=== PATIENT | male | born 1950 | race Caucasian/White ===

== ENCOUNTER 2019-02-13 11:15 | Emergency (ER) | payer OTHER ==
[~2019-02-13] VITALS: Ht 182.9 cm; Wt 113.8 kg
[2019-02-13 11:16] VITALS: BP 137/79
[2019-02-13] MEDS ORDERED: PLAVIX 75 MG TA75 M1 PO (11:28)
[2019-02-13] MEDS ORDERED: PROTONIX40 M1 PO (11:28)
[2019-02-13] MEDS ORDERED: LISINOPRIL40 MG PO (11:28)
[2019-02-13] MEDS ORDERED: AGGRENOX 25 MG1 EACH PO (11:28)
[2019-02-13] MEDS ORDERED: LIPITOR40 MG PO (11:29)
[2019-02-13] MEDS ORDERED: METFORMIN HCL500 MG PO (11:29)
[2019-02-13] MEDS ORDERED: WELLBUTRIN XL300 MG PO (11:29)
[2019-02-13] MEDS ORDERED: OXYCONTIN10 M1 PO (11:30)
[2019-02-13] MEDS ORDERED: XANAX 0.5 MG0.5 MG PO (11:30)
[2019-02-13] MEDS ORDERED: PROZAC20 MG PO (11:30)
[2019-02-13] MEDS ORDERED: ACCUNEB SO1.25 MG/1 INH (11:31)
[2019-02-13] MEDS ORDERED: ADVAIR HFA 230M12 GM INH (11:31)
[2019-02-13] MEDS ORDERED: VENTOLIN HFA 1818 GM INH (11:31)
[2019-02-13] MEDS ORDERED: HYDROCHLOROTH12.5 M1 PO (11:31)
[2019-02-13] MEDS ORDERED: KEPPRA 500 MG500 M1 PO (11:32)
[2019-02-13] MEDS ORDERED: VIAGRA100 MG PO (11:32)
[2019-02-13 11:33] LABS: ABSOLUTE BASOPHILS 0.1 thou/uL (0.0-0.2); ABSOLUTE EOSINOPHILS 0.3 thou/uL (0.0-0.7); ABSOLUTE LYMPHOCYTES 1.4 thou/uL (0.8-5.3); ABSOLUTE MONOCYTES 0.7 thou/uL (0.0-1.2); ABSOLUTE NEUTROPHILS 5.5 thou/uL (1.6-8.1); BASOPHILS 0.9 %; EOSINOPHILS 4.1 %; HEMATOCRIT 42.9 % (42.0-52.0); HEMOGLOBIN 14.8 gm/dL (14.0-18.0); LYMPHOCYTES 17.1 %; MCH 34.6 pg (26.0-34.0); MCHC 34.5 g/dL (28.0-37.0); MCV 100.5 fL (80.0-100.0); MONOCYTES 8.4 %; MPV 8.1 fl. (7.2-11.1); NUCLEATED RBCS 0 /100WBC; PLATELET COUNT* 247 thou/uL (150-400); POLYS 69.5 %; RBC 4.27 mil/uL (4.50-6.00); RDW-CV 13.5 % (10.5-14.5); WBC 7.9 thou/uL (4.0-11.0)
[2019-02-13] MEDS ORDERED: MELATONIN5 M1 PO (11:33)
[2019-02-13] MEDS ORDERED: B12INJ IM (11:33)
[2019-02-13] MEDS ORDERED: ZANAFLEX4 MG PO (11:33)
[2019-02-13] MEDS ORDERED: ADDERALL 10 MG10 MG PO (11:33)
[2019-02-13 11:44] LABS: PROTIME 9.9 Seconds (9.20-11.50)
[2019-02-13 11:46] LABS: ANION GAP 8 mmol/L (7-16); BUN 15 mg/dL (7-18); CALCIUM 9.1 mg/dL (8.5-10.1); CHLORIDE 102 mmol/L (98-107); CO2 30 mmol/L (21-32); CREATININE 1.1 mg/dL (0.6-1.3); GLUCOSE 145 mg/dL (70-99); POTASSIUM 4.5 mmol/L (3.5-5.1); SODIUM 140 mmol/L (136-145)
[2019-02-13 11:57] LABS: ALBUMIN 3.4 g/dL (3.4-5.0); ALKALINE PHOSPHATASE 109 U/L (46-116); LIPASE 136 U/L (73-393); NT-PRO BRAIN NAT PEPTIDE 45 pg/mL (<300); SGOT 16 U/L (15-37); SGPT 22 U/L (30-65); TOTAL BILIRUBIN 0.5 mg/dL (<0.1-1.0); TOTAL PROTEIN 6.7 g/dL (6.4-8.2); TROPONIN-I LEVEL <0.06 ng/mL (<0.06)
--- NOTE | 2019-02-13 13:01 | NUR ---
PT WENT FROM CAT SCAN STRAIGHT TO MRI
--- NOTE | 2019-02-13 13:23 | NUR ---
CODE STROKE ACTIVATED AT [address] SEPULVEDA. SEE CODE STROKE SHEET FOR DOCUMENTATION.
--- NOTE | 2019-02-13 15:31 | NUR ---
PT STATES HE IS FEELING MUCH BETTER AND WANTS TO LEAVE AGAINST MEDICAL ADVICE. PT HAS BEEN EXPLAINED HIS RISKS OF LEAVING AGAINST MEDICAL ADVICE AND HAS SIGNED THE REFUSAL OF MEDICAL EXAMINATION AND/OR TREATMENT FORM. IV HAS BEEN REMOVED AND PT HAS CALLED FOR A RIDE HOME. PT IS STABLE AT THIS TIME.
[2019-02-13 15:32] VITALS: BP 158/90
--- NOTE | 2019-02-13 16:55 | EKG ---
[place] [address] ELECTROCARDIOGRAM REPORT Name: AMY GILLETTEGALINDO Gómez Room: [facility]#: [id number] Admission: 02/13/19 Attend Phys: Discharge: 02/13/19 Date of : 48 Report #: [id number] THIS REPORT FOR: //name// [facility] ED Test Date: 2019-02-13 Test Time: 11:19:18 Pat Name: LEELA GILLETTE Department: Room: [facility] Gender: M Bridge Tender: EV : 1950 Requested By: Eduardo Yadav Order Number: [id number] MD: Thomas Naylor Measurements Intervals Stone Rate: 92 P: 66 OR: 179 QRS: 91 QRSD: 111 T: 52 QT: 342 QTc: 424 Interpretive Statements Sinus rhythm Right axis deviation No previous ECG available for comparison Electronically Signed On 02-13-2019 16:55:22 CDT by Thomas Naylor [email or web address] <ELECTRONICALLY SIGNED> By: Thomas Naylor MD, FACC 02/13/19 1655 1119 1119 Thomas Naylor MD, FAC /EPI
--- NOTE | 2019-02-24 19:25 | CON ---
[address] [address] CONSULTATION Name: NAINLEELA Room: [facility] Genoveva#: [id number] Admission: 02/13/19 Attend Phys: Discharge: 02/13/19 Date of : 48 Report #: [id number] THIS REPORT FOR: //name// CC: Zelalem Yadav DATE OF SERVICE: 02/13/2019 HISTORY OF PRESENT ILLNESS: This is a 68-year-old male patient who was seen by me for pretty unusual symptoms. History is not very clear. The patient gives a history that he is feeling weak. The weakness is somewhat generalized. He has a nonspecific visual problem. He said he is weak on the left side because of some stroke in the past, but he has become weaker there. He can still move it, but I do not know his baseline to tell how much weaker he is, so the whole thing is a pretty unusual. REVIEW OF SYSTEMS: Indicate that he said he had a stroke in the past. He has weakness on the left side that is the residual weakness. He has a history of back pain, COPD, subdural hematoma. He said he went to [facility] and they decided not to do any surgery on him. He does have a history of high cholesterol. His 14-point review of system was carried out and this was his relevant 14-point review of system. I do not know who his neurologist is, but he takes a combination of Aggrenox and Plavix. PAST MEDICAL HISTORY: Positive for stroke, but that history need to be confirmed further. FAMILY HISTORY: Negative for early age stroke. SOCIAL HISTORY: He does not smoke. PHYSICAL EXAMINATION: The patient's examination indicates he is alert. He is responsive. He can follow simple commands. His speech looks intact. His cranial nerve examination does not appear to be showing any abnormality. Specifically, I did not see any evidence for hemianopsia. He moves all 4 extremities. He says he is pretty weak in the left upper and left lower extremities, it is difficult to know because I do not have any of his prior records. His rest of the examinations appear unremarkable. He is not in respiratory distress. His vital signs indicate a blood pressure of 137/79, respiration is 20, pulse is 96, and temperature is 97.6. He had a CT scan of the head and I reviewed those films and he does have a pretty good size subdural hematoma on the left side. Because of the history was unclear, I talked to him about the TPA, but we do not know for sure whether he had a stroke, then he also has a subdural[place] [address] CONSULTATION Name: AMY GILLETTEGALINDO Gómez Room: [facility] Tomas#: [id number] Admission: 02/13/19 Attend Phys: Discharge: 02/13/19 Date of : 48 Report #: [id number] After giving all his option so as was not to proceed with TPA and that is reasonable, but I wanted to do the work up further and we did a CT angio with perfusion that was normal. We even got an MRI of the brain done that showed no acute abnormality. IMPRESSION: It is not clear what the patient's symptoms are from. There has been no evidence for stroke. I discussed with them that does not exclude the possibility of stroke and discussed his option in that regard including TPA. He wants to be watched and we will give him some fluid. We need to get some records from him, it is very unusual for the patient to be on both Aggrenox and Plavix, especially because he still has subdural hematoma. Time spent about 50 minutes, majority counseling and coordinating his care. <ELECTRONICALLY SIGNED> By: Hakan Byrd MD 02/24/19 1925 1416 1433Psol Byrd MD /nt
== END 2019-02-13 15:34 | disposition left against medical advice (07) ==
LOC: M.ERS 11:15 → M.TBA-ER 14:05
PROVIDERS: Emergency Medicine
DX: R53.1 Weakness (principal); R42 Dizziness and giddiness; I10 Essential (primary) hypertension; E11.9 Type 2 diabetes mellitus without complications; E78.00 Pure hypercholesterolemia, unspecified; J44.9 Chronic obstructive pulmonary disease, unspecified; Z86.73 Personal history of transient ischemic attack (TIA), and cerebral infarction without residual deficits; Z88.8 Allergy status to other drugs, medicaments and biological substances

== ENCOUNTER → 2020-02-21 | Outpatient (CLI) | payer MEDICARE, OTHER ==
[~2020-02-21] MED LIST: ACCUNEB SO1.25 MG/1 INH; ADDERALL 10 MG10 MG PO; ADVAIR 250-501 EACH INH; ADVAIR HFA 230M12 GM INH; AGGRENOX 25 MG1 EACH PO; B12INJ IM; COLACE100 MG PO; CYMBALTA60 MG PO; HYDROCHLOROTH12.5 M1 PO; KEPPRA 500 MG500 M1 PO; LIPITOR40 MG PO; LISINOPRIL40 MG PO; MELATONIN5 M1 PO; METFORMIN HCL500 M3 PO; METFORMIN HCL500 MG PO; NEURONTIN 300M300 M2 PO; NEURONTIN600 MG PO; NORCO 5-325 TA1 EAC2 PO; OXYCONTIN10 M1 PO; PERCOCET 5-3251 EACH PO; PLAVIX 75 MG TA75 M1 PO; PROTONIX40 M1 PO; PROZAC20 MG PO; TYLENOL EXTRA500 MG PO; VENTOLIN HFA 1818 GM INH; VIAGRA100 MG PO; VITAMIN D325 MC5 PO; WELLBUTRIN XL300 MG PO; XANAX 0.5 MG0.5 MG PO; ZANAFLEX4 MG PO
== END ==
LOC: M.LAB 09:25
PROVIDERS: ATTEND Orthopaedic Surgery
DX: Z01.812 Encounter for preprocedural laboratory examination (principal); Z20.828 Contact with and (suspected) exposure to other viral communicable diseases

== ENCOUNTER → 2020-02-26 | Day surgery (SDC) | payer MEDICARE, OTHER ==
[2020-02-26 09:01] LABS: HEMATOCRIT 43.1 % (42.0-52.0); HEMOGLOBIN 14.2 gm/dL (14.0-18.0); MCH 34.6 pg (26.0-34.0); MCV 104.6 fL (80.0-100.0); MPV 7.6 fl. (7.2-11.1); RBC 4.12 mil/uL (4.50-6.00); RDW-CV 13.1 % (10.5-14.5); WBC 6.9 thou/uL (4.0-11.0)
[2020-02-26 09:04] LABS: CALCIUM 9.2 mg/dL (8.5-10.1); CREATININE 1.1 mg/dL (0.6-1.3); POTASSIUM 3.8 mmol/L (3.5-5.1)
--- NOTE | 2020-02-26 09:57 | EKG ---
[place] [address] ELECTROCARDIOGRAM REPORT Name: LEELA GILLETTE Room: [facility]#: [id number] Admission: 02/26/20 Attend Phys: Eduardo Ledezma, Discharge: Date of : 48 Date of Service: 02/26/20910 Report #: [id number] THIS REPORT FOR: //name// [facility] Test Date: 2020-02-26 Test Time: 09:11:56 Pat Name: LEELA GILLETTE Department: Room: Gender: Title Department Manager: : 1950 Requested By: Eduardo Ledezma Order Number: [id number] Adam MD: Mars Parra Measurements Intervals Mcdonald Rate: 70 P: 72 DC: 197 QRS: 83 QRSD: 113 T: 62 QT: 404 QTc: 436 Interpretive Statements Sinus rhythm Incomplete right bundle branch block Compared to ECG 02/13/2019 11:19:18 no change Electronically Signed On 02-26-2020 9:56:55 CDT by Mars Parra [email or web address] <ELECTRONICALLY SIGNED> By: Mars Parra MD, [facility] 02/26/20 0956 0 0 Mars Parra MD, [facility] /EPI
--- NOTE | 2020-02-28 11:53 | OP ---
[address] [address] OPERATIVE REPORT Name: LEELA GILLETTE Room: [facility]#: [id number] Admission: 02/26/20 Attend Phys: Eduardo Ledezma II Discharge: Date of : 48 Report #: [id number] THIS REPORT FOR: //name// cc: Dedrick Miller Gregory DO ~ CC: Dedrick Ledezma DATE OF SERVICE: 02/26/2020 PREOPERATIVE DIAGNOSIS: Right carpal tunnel syndrome. POSTOPERATIVE DIAGNOSIS: Right carpal tunnel syndrome. PROCEDURE: Right carpal tunnel release. SURGEON: Eduardo Ledezma II, D.O. YARD JOCKEY: KOLBY Cosme. ANESTHESIA: Zenaida block. ESTIMATED BLOOD LOSS: Minimal. ANTIBIOTICS: Per operative record. DRAINS: None. COMPLICATIONS: None. CONDITION: Stable to recovery room. DESCRIPTION OF PROCEDURE: The patient was taken to the operative suite and placed supine on the operative table, given appropriate anesthesia. The patient had a well-padded tourniquet applied to the affected upper extremity, which was inflated to 250 mmHg after Esmarch exsanguination for duration of procedure and was sterilely prepped and draped. Surgery began by a midline incision of the palm, this was carried down to the subcutaneous tissues. Transverse carpal ligament was found and ligated in both proximal and distal directions. This was shown under direct visualization to be clearly transected. 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 Irrigation was then performed of the wound. It was then closed with nylons in appropriate fashion. Sterile dressing of [place]ermab[place] [address] OPERATIVE REPORT Name: NAINLEELA Room: [facility]#: [id number] Admission: 02/26/20 Attend Phys: Eduardo Ledezma II Discharge: Date of : 48 Report #: [id number] was transported to recovery room in stable condition. Counts were correct throughout the procedure. <ELECTRONICALLY SIGNED> By: Eduardo Ledezma II, DO 02/28/20 1153 2142 2201Rriky Ledezma II, DO /nt
== END | disposition home or self-care (01) ==
LOC: M.SUR
PROVIDERS: ATTEND Orthopaedic Surgery
DX: G56.01 Carpal tunnel syndrome, right upper limb (principal); Z79.899 Other long term (current) drug therapy; Z88.8 Allergy status to other drugs, medicaments and biological substances; Z98.890 Other specified postprocedural states

== ENCOUNTER → 2020-05-21 | Outpatient (CLI) | payer OTHER | LOC: M.RAD 11:07 | PROVIDERS: ATTEND Orthopaedic Surgery | DX: M50.322 Other cervical disc degeneration at C5-C6 level (principal); M85.88 Other specified disorders of bone density and structure, other site ==